=== PATIENT | female | born 1965 | race Caucasian/White ===

== ENCOUNTER 2017-02-19 11:27 | Day surgery (SDC) | payer OTHER ==
[~2017-02-19] VITALS: Ht 160 cm; Wt 99.8 kg
[~2017-02-19 11:27] MED LIST: ACETAMINOPHEN-1 EAC1 PO; ADULT FOLDING1 EACH MC; ALTACE10 MG PO; ALTACE5 MG PO; AMLODIPINE BESY10 MG PO; ASPIR 8181 M1 PO; ASPIR-LOW81 MG PO; ASPIRIN E.C.81 M1 PO; BRILINTA90 MG PO; CALCITRIOL0.25 MCG PO; CRESTOR10 MG PO; CRESTOR40 MG PO; CRESTOR5 MG PO; CYMBALTA60 MG PO; HUMULIN N100 UNIT/1 SQ; HYDROCODON-ACE1 EAC7 PO; JANUVIA100 MG PO; LEVEMIR100 UNIT/2 SC; LEVOTHROID175 MCG PO; LEVOTHYROXINE200 MC1 PO; LOPRESSOR50 MG PO; LYRICA50 MG PO; Levothroid,Synthroid PO; METFORMIN HCL850 MG PO; METOPROLOL TART50 MG PO; MOTRIN800 MG PO; NEURONTIN100 MG PO; NOHOMEMEDS; NOVOLOG 10100 UNITS/ SC; Norvasc PO; NovoLIN N (NPH),Humu SC; PERCOCET 5/31 TABLET PO; PLAVIX75 MG PO; PRAVASTATIN SOD80 MG PO; PREDNISONE50 MG PO; PROMETHAZINE12.5 M1 PO; RAMIPRIL10 MG PO; ROCALTROL0.25 MCG PO; SYNTHROID; SYNTHROID50 MCG PO; TOUJEO SOL300 UNIT/1 SC; Xanax PO; ZOFRAN ODT8 MG PO; [UNRECOGNIZED DRUG - REMARK]; [UNRECOGNIZED DRUG - REMARK]; [UNRECOGNIZED DRUG - REMARK]
[2017-02-19 12:31] VITALS: BP 135/71
[2017-02-19 13:24] LABS: POINT-OF-CARE METER ID UU14174212; POINT-OF-CARE USER ID AHSRSCSLC11
[2017-02-19 16:02] LABS: POINT-OF-CARE METER ID UU13113675
[2017-02-19 17:50] VITALS: BP 155/79
== END 2017-02-19 18:15 | disposition home or self-care (01) ==
LOC: SDC 11:27
PROVIDERS: Orthopaedic Surgery
PROC: 01N50ZZ Release Median Nerve, Open Approach (ICD-10-PCS; principal; 2017-02-19)
DX: G56.01 Carpal tunnel syndrome, right upper limb (principal); I25.10 Atherosclerotic heart disease of native coronary artery without angina pectoris; I10 Essential (primary) hypertension; E03.9 Hypothyroidism, unspecified; E11.9 Type 2 diabetes mellitus without complications; Z95.5 Presence of coronary angioplasty implant and graft; Z98.61 Coronary angioplasty status; Z79.82 Long term (current) use of aspirin; Z79.4 Long term (current) use of insulin; Z88.0 Allergy status to penicillin; Z87.891 Personal history of nicotine dependence
CPT/HCPCS: 82948; J1170; J1885; J2250; J3010

== ENCOUNTER 2017-03-19 10:39 | Day surgery (SDC) | payer OTHER ==
[~2017-03-19] VITALS: Ht 160 cm; Wt 108.8 kg
[2017-03-19 12:19] VITALS: BP 141/82
[2017-03-19 12:21] LABS: POINT-OF-CARE METER ID UU14174212
[2017-03-19 14:28] LABS: POINT-OF-CARE METER ID UU13113675
== END 2017-03-19 15:34 | disposition home or self-care (01) ==
LOC: SDC
PROVIDERS: Orthopaedic Surgery
PROC: 01N50ZZ Release Median Nerve, Open Approach (ICD-10-PCS; principal; 2017-03-19)
DX: G56.02 Carpal tunnel syndrome, left upper limb (principal); E11.42 Type 2 diabetes mellitus with diabetic polyneuropathy; M54.16 Radiculopathy, lumbar region; E03.9 Hypothyroidism, unspecified; I25.10 Atherosclerotic heart disease of native coronary artery without angina pectoris; E78.5 Hyperlipidemia, unspecified; I10 Essential (primary) hypertension; Z95.5 Presence of coronary angioplasty implant and graft; Z87.891 Personal history of nicotine dependence; Z88.0 Allergy status to penicillin; Z88.8 Allergy status to other drugs, medicaments and biological substances; Z79.4 Long term (current) use of insulin; Z79.82 Long term (current) use of aspirin; Z82.49 Family history of ischemic heart disease and other diseases of the circulatory system; Z83.3 Family history of diabetes mellitus
CPT/HCPCS: 82948; J1100; J1170; J1885; J2250; J2405; J3010

== ENCOUNTER 2017-11-25 00:52 | Emergency (ER) | payer OTHER ==
[~2017-11-25] VITALS: Ht 160 cm; Wt 110.2 kg
[2017-11-25 01:21] LABS: HEMATOCRIT 43.4 % (36.0-46.0); HEMOGLOBIN 14.4 G/DL (11.9-15.5); MCHC 33.2 G/DL (30.0-36.0); MCV 90.4 FL (83-99); PLATELET COUNT 280 K/uL (156-360); RBC DIS.WIDTH-CV 13.5 % (11.8-14.6); RBC DIS.WIDTH-SD 45.1 % (39-53); WHITE BLOOD COUNT 7.1 K/uL (4.1-10.2)
[2017-11-25 01:29] LABS: ALBUMIN 4.1 g/dL (3.2-4.8); CHLORIDE 106 mEq/L (99-109); POTASSIUM 4.4 mEq/L (3.7-5.4); SODIUM 140 mEq/L (136-147)
[2017-11-25 01:31] LABS: GLUCOSE 121 mg/dL (70-99)
[2017-11-25 01:33] LABS: TOTAL BILIRUBIN 0.2 mg/dL (0.0-1.0)
[2017-11-25 01:35] LABS: ALKALINE PHOSPHATASE 58 IU/L (3-129); CREATININE 0.8 mg/dL (0.6-1.3); GFR ESTIMATE (CALCULATED) > 59 mL/min/
[2017-11-25 01:36] LABS: UREA NITROGEN (BUN) 15 mg/dL (9-23)
[2017-11-25 01:37] LABS: AST (GOT) 24 IU/L (2-34)
[2017-11-25 01:38] LABS: ALT (GPT) 30 IU/L (3-49)
[2017-11-25] MEDS ORDERED: FLEXERIL10 MG PO (03:02)
[2017-11-25 03:17] VITALS: BP 145/84
== END 2017-11-25 03:18 | disposition home or self-care (01) ==
LOC: EME 00:52
DX: M79.661 Pain in right lower leg (principal); I10 Essential (primary) hypertension; E11.9 Type 2 diabetes mellitus without complications; E03.9 Hypothyroidism, unspecified; F41.9 Anxiety disorder, unspecified; Z87.891 Personal history of nicotine dependence; Z79.4 Long term (current) use of insulin; Z79.82 Long term (current) use of aspirin; Z88.0 Allergy status to penicillin; Z88.8 Allergy status to other drugs, medicaments and biological substances
CPT/HCPCS: 80053; 85027; 93971

== ENCOUNTER 2018-01-15 10:30 | Observation (INO) | payer OTHER ==
[~2018-01-15] VITALS: Ht 160 cm; Wt 103.0 kg
[~2018-01-15 10:30] MED LIST changes: +CYMBALTA30 MG PO; -CYMBALTA60 MG PO; +FLEXERIL10 MG PO; +LYRICA100 MG PO; -LYRICA50 MG PO; +NOVOLOG PE100 UNITS/ SC
[2018-01-15 11:14] LABS: HEMATOCRIT 47.2 % (36.0-46.0); HEMOGLOBIN 15.7 G/DL (11.9-15.5); MCH 29.7 PG (29.0-34.0); MCHC 33.3 G/DL (30.0-36.0); MCV 89.4 FL (83-99); PLATELET COUNT 258 K/uL (156-360); RBC DIS.WIDTH-SD 45.3 % (39-53); RED BLOOD COUNT 5.28 M/uL (3.80-5.20); WHITE BLOOD COUNT 4.7 K/uL (4.1-10.2)
[2018-01-15 11:23] LABS: CHLORIDE 105 mEq/L (99-109); POTASSIUM 4.8 mEq/L (3.7-5.4); SODIUM 142 mEq/L (136-147)
[2018-01-15 11:25] LABS: GLUCOSE 185 mg/dL (70-99)
[2018-01-15 11:29] LABS: CREATININE 0.9 mg/dL (0.6-1.3); GFR ESTIMATE (CALCULATED) > 59 mL/min/
[2018-01-15 11:30] LABS: UREA NITROGEN (BUN) 14 mg/dL (9-23)
[2018-01-15 11:37] LABS: TROP-I INTERPRETATION NEGATIVE; TROPONIN-I < 0.01 ng/mL (0.0-0.30)
[2018-01-15] MEDS ORDERED: METHADONE5 MG PO (14:45)
[2018-01-15] MEDS ORDERED: NUCYNTA75 MG PO (14:46)
[2018-01-15] MEDS ORDERED: LIDOCAINE700 MG TP (14:47)
[2018-01-15] MEDS ORDERED: REQUIP2 MG PO (14:48)
[2018-01-15] MEDS ORDERED: TEGRETOL100 MG PO (14:48)
[2018-01-15] MEDS ORDERED: TRESIBA FL100 UNIT/1 SC (14:50)
[2018-01-15] MEDS ORDERED: INVOKANA100 MG PO (14:51)
[2018-01-15] MEDS ORDERED: NORVASC5 MG PO (14:51)
[2018-01-15 17:30] VITALS: BP 152/70
[2018-01-15 18:28] LABS: TROP-I INTERPRETATION NEGATIVE; TROPONIN-I < 0.01 ng/mL (0.0-0.30)
[2018-01-15 20:25] VITALS: BP 119/64
[2018-01-16] VITALS: BP 120/56
[2018-01-16 00:58] LABS: TROP-I INTERPRETATION NEGATIVE; TROPONIN-I < 0.01 ng/mL (0.0-0.30)
[2018-01-16 04:03] VITALS: BP 125/60
[2018-01-16 07:00] VITALS: BP 116/56
[2018-01-16 11:50] VITALS: BP 118/56
[2018-01-16 12:45] LABS: D-DIMER ELISA < 150.00 ng/mLDDU (<230)
== END 2018-01-16 14:25 | disposition home or self-care (01) ==
LOC: EME 10:30 → EDOF 13:24 → CANRESERV 13:35 → ENRESERV 13:35 → EDOF 13:48 → ENRESERV 16:44 → 5WEST 17:18 → ENPENDDIS 01-16 13:56 → 5WEST 01-16 14:25
PROVIDERS: Internal Medicine; Internal Medicine Cardiovascular Disease
DX: R07.9 Chest pain, unspecified (principal); I25.10 Atherosclerotic heart disease of native coronary artery without angina pectoris; Z95.1 Presence of aortocoronary bypass graft; Z95.5 Presence of coronary angioplasty implant and graft; I11.9 Hypertensive heart disease without heart failure; E11.40 Type 2 diabetes mellitus with diabetic neuropathy, unspecified; Z79.4 Long term (current) use of insulin; Z79.82 Long term (current) use of aspirin; E66.9 Obesity, unspecified; Z68.41 Body mass index [BMI] 40.0-44.9, adult; Z82.49 Family history of ischemic heart disease and other diseases of the circulatory system; E78.5 Hyperlipidemia, unspecified; E03.9 Hypothyroidism, unspecified; M54.16 Radiculopathy, lumbar region; M19.90 Unspecified osteoarthritis, unspecified site; F41.9 Anxiety disorder, unspecified; F32.9 Major depressive disorder, single episode, unspecified; Z87.891 Personal history of nicotine dependence; Z88.8 Allergy status to other drugs, medicaments and biological substances; Z88.0 Allergy status to penicillin
CPT/HCPCS: 71046; 80048; 82948; 84484; 85027; 85379; 93005; 99281; 99285; G0378; J1650; J2270; J7030

== ENCOUNTER 2018-02-01 11:29 | Day surgery (SDC) | payer OTHER ==
[~2018-02-01] VITALS: Ht 160 cm; Wt 110.0 kg
[~2018-02-01 11:29] MED LIST changes: +INVOKANA100 MG PO; +LIDOCAINE700 MG TP; +METHADONE5 MG PO; +NEXIUM40 MG PO; +NORVASC5 MG PO; +NUCYNTA75 MG PO; +REQUIP2 MG PO; +TEGRETOL100 MG PO; +TRESIBA FL100 UNIT/1 SC
== END 2018-02-01 18:23 | disposition home or self-care (01) ==
LOC: CATH 11:29
PROVIDERS: Internal Medicine Cardiovascular Disease
DX: T82.855A Stenosis of coronary artery stent, initial encounter (principal); I25.10 Atherosclerotic heart disease of native coronary artery without angina pectoris; I10 Essential (primary) hypertension; E03.9 Hypothyroidism, unspecified; E11.40 Type 2 diabetes mellitus with diabetic neuropathy, unspecified; Z68.41 Body mass index [BMI] 40.0-44.9, adult; E66.9 Obesity, unspecified; Y83.1 Surgical operation with implant of artificial internal device as the cause of abnormal reaction of the patient, or of later complication, without mention of misadventure at the time of the procedure; Z79.4 Long term (current) use of insulin; Z79.82 Long term (current) use of aspirin; Z88.0 Allergy status to penicillin
CPT/HCPCS: 82948; C1769; C1887; J1200; J1644; J2250